=== PATIENT | female | born 2000 | race Caucasian/White ===

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

== ENCOUNTER 2019-01-24 23:14 | Emergency (ER) | payer OTHER ==
[2019-01-24 23:22] VITALS: BP 115/75; PULSE 62; RESP 16; TEMP 97.8
--- NOTE | 2019-01-25 00:29 | XR ---
EXAM: XR Left Knee, 3 views CLINICAL HISTORY: Pain TECHNIQUE: Three views of the left knee. COMPARISON: No relevant prior studies available. FINDINGS: Bones/joints: Unremarkable. No acute fracture. No dislocation. Soft tissues: Unremarkable. IMPRESSION: Normal left knee x-rays.
--- NOTE | 2019-01-25 00:55 | ED ---
Fall HPI - General Chief Complaint: Fall Stated Complaint: Knee Injury, [facility] Time Seen by Provider: 01/25/19 00:21 Source: patient, RN notes reviewed, old records reviewed Mode of arrival: wheelchair - History of Present Illness Initial Comments: Patient is a 18-year-old female presents today with left knee pain after trip and fall over a broom. She reports that her weight landed on her left knee. He reports pain with flexion. Most of her pain is on her knee. Patient denies any peripheral paresthesias. Patient denies any recent fever, chills, shortness of breath, chest pain, back pain, abdominal pain, nausea vomiting, numbness or tingling, dysuria or hematuria, constipation or diarrhea, headaches or visual changes, or any other current symptoms - Related Data Home Medications Medication Instructions Recorded Confirmed [place] Control 1 tab PO HS 07/19/18 07/19/18 Previous Rx's Medication Instructions Recorded Ibuprofen 600 mg PO TID #30 tablet 07/19/18 Fluticasone Propionate [Flonase 1 spray EA NOSTRIL DAILY #1 bottle 09/24/18 Allergy Relief] methylPREDNISolone Dose Pack 4 mg PO DIRECTED #21 package 09/24/18 [Medrol Dose Pack] Ibuprofen 600 mg PO TID #20 tablet 01/25/19 Allergies Allergy/AdvReac Type Severity Reaction Status Date / Time No Known Allergies Allergy Verified 01/24/19 23:22 Review of Systems ROS Statement: Those systems with pertinent positive or pertinent negative responses have been documented in the HPI. ROS Other: All systems not noted in ROS Statement are negative. Past Medical History Past Medical History: No Reported History History of Any Multi-Drug Resistant Organisms: None Reported Past Surgical History: No Surgical Hx Reported Additional Past Surgical History / Comment(s): ear tubes Past Psychological History: Anxiety Smoking Status: Never smoker Past Alcohol Use History: None Reported Past Drug Use History: None Reported General Exam - General Exam Comments Initial Comments: 18-year-old female. Alert and oriented 3. Patient appears in no significant distress. Limitations: no limitations General appearance: alert, in no apparent distress Head exam: Present: atraumatic, normocephalic, normal inspection Eye exam: Present: normal appearance, PERRL, EOMI. Absent: scleral icterus, conjunctival injection, periorbital swelling ENT exam: Present: normal exam, mucous membranes moist Neck exam: Present: normal inspection. Absent: tenderness, meningismus, lymphadenopathy Respiratory exam: Present: normal lung sounds bilaterally. Absent: respiratory distress, wheezes, rales, rhonchi, stridor Cardiovascular Exam: Present: regular rate, normal rhythm, normal heart sounds. Absent: systolic murmur, diastolic murmur, rubs, gallop, clicks GI/Abdominal exam: Present: soft, normal bowel sounds. Absent: distended, tenderness, guarding, rebound, rigid Extremities exam: Present: normal inspection, full ROM, normal capillary refill. Absent: tenderness, pedal edema, joint swelling, calf tenderness Left Knee exam: Present: normal inspection, tenderness (Tenderness over the kneecap.), ecchymosis (Echinosis of knee cap). Absent: full ROM (Chest pain with flexion.) Lower Leg exam: Present: normal inspection, full ROM Ankle exam: Present: normal inspection, full ROM Foot/Toe exam: Present: normal inspection, full ROM Neurovascular tendon exam: Present: no vascular compromise Gait: observed and normal Back exam: Present: normal inspection Neurological exam: Present: alert, oriented X3, CN II-XII intact Psychiatric exam: Present: normal affect, normal mood Course Vital Signs 01/24/19 23:19 Temperature 97.8 F Pulse Rate 62 Respiratory 16 Rate Blood Pressure 115/75 O2 Sat by Pulse 97 Oximetry Medical Decision Making - Medical Decision Making 18-year-old female presents to return today with left knee pain after she tripped and fell. Patient reports that her pain is left kneecap. Pain with flexion. At this time Patient does have some swelling over the knee. X-rays reviewed and negative for fracture. At this time Patient is given Nolan wrap and advised to scratches that she hard he has at home and anti-inflammatory medicine for pain. Discussion follow-up with orthopedic. All questions were answered. - Radiology Data Radiology results: report reviewed Normal left knee exam Disposition Clinical Impression: Contusion of left knee Disposition: HOME SELF-CARE Condition: Good Instructions (If sedation given, give patient instructions): Knee Sprain (ED) Additional Instructions: Patient has a take Motrin for pain. Wear the Nolan wrap and use ice to the knee to help with inflammation. Follow-up with orthopedic if symptoms continue to persist. Prescriptions: Ibuprofen 600 mg PO TID #20 tablet Is patient prescribed a controlled substance at d/c from ED?: No Referrals: Hi Chavez MD [Primary Care Provider] - 1-2 days Roger Wilson MD [Medical Doctor] - 1-2 days Time of Disposition: 00:56
== END 2019-01-25 01:48 | disposition home or self-care (01) ==
LOC: EC 23:14
DX: S80.02XA Contusion of left knee, initial encounter (principal); Z79.3 Long term (current) use of hormonal contraceptives; W01.0XXA Fall on same level from slipping, tripping and stumbling without subsequent striking against object, initial encounter; Y92.69 Other specified industrial and construction area as the place of occurrence of the external cause; Y99.0 Civilian activity done for income or pay
CPT/HCPCS: 99284

== ENCOUNTER 2019-03-14 12:47 | Emergency (ER) | payer OTHER ==
[2019-03-14] MEDS ORDERED: IBUPROFEN 600 MG TAB PO STA (13:49)
[2019-03-14] MEDS ORDERED: ACETAMINOPHEN TAB 325 MG TAB PO STA (13:49)
--- NOTE | 2019-03-14 13:49 | ED ---
Abdominal Pain HPI - General Chief Complaint: Abdominal Pain Stated Complaint: ovarian cysts Time Seen by Provider: 03/14/19 13:11 Source: patient Mode of arrival: ambulatory Limitations: no limitations - History of Present Illness Initial Comments: Patient is a 18-year-old female presenting to the emergency Department with complaints of bilateral lower abdominal pain that has been increasing over the past 3-4 days. Patient states she has a history of ovarian cysts and this pain feels similar in nature. Patient states however she is not usually have it on both sides at the same time. Patient states she just had a period last month and normally has them every 3 months. Patient states she is also having a small amount of bloody vaginal discharge. Patient denies any vaginal pain, other discharge, itching. Patient states she was recently tested for STDs which were all negative. Patient also uses protection with her one partner. Patient has no concerns for STDs at this time. Admits to mild nausea intermittently. She took Motrin yesterday without significant improvement in her pain. Patient states she called her DIRECTOR OF ANALYTICAL DEVELOPMENT who were not able to get her in today so suggested she come to the ER. Denies fever, chills, vomiting, diarrhea. Patient denies abdominal surgeries. Patient has no other complaints at this time. Upon arrival to ER, vital signs are stable. - Related Data Home Medications Medication Instructions Recorded Confirmed [place] Control 1 tab PO HS 07/19/18 03/14/19 FLUoxetine HCL [PROzac] 20 mg PO DAILY 03/14/19 03/14/19 Previous Rx's Medication Instructions Recorded Ibuprofen 600 mg PO TID #30 tablet 07/19/18 Allergies Allergy/AdvReac Type Severity Reaction Status Date / Time Milk Containing Products AdvReac Nausea Verified 03/14/19 13:41 [Dairy] Review of Systems ROS Statement: Those systems with pertinent positive or pertinent negative responses have been documented in the HPI. ROS Other: All systems not noted in ROS Statement are negative. Past Medical History Past Medical History: No Reported History History of Any Multi-Drug Resistant Organisms: None Reported Past Surgical History: No Surgical Hx Reported Additional Past Surgical History / Comment(s): ear tubes Past Psychological History: Anxiety Smoking Status: Never smoker Past Alcohol Use History: None Reported Past Drug Use History: None Reported General Exam - General Exam Comments Initial Comments: GENERAL: Well-appearing, well-nourished and in no acute distress. HEAD: Atraumatic, normocephalic. EYES: Pupils equal round and reactive to light, extraocular movements intact, sclera anicteric, conjunctiva are normal. ENT: Nares patent, oropharynx clear without exudates. Moist mucous membranes. NECK: Normal range of motion, supple without lymphadenopathy or JVD. LUNGS: Breath sounds clear to auscultation bilaterally and equal. No wheezes rales or rhonchi. HEART: Regular rate and rhythm without murmurs, rubs or gallops. ABDOMEN: Mild bilateral lower quadrant tenderness. Soft, normoactive bowel sounds. No guarding, no rebound. No masses appreciated. : Deferred, declined EXTREMITIES: Normal range of motion, no pitting or edema. No clubbing or cyanosis. NEUROLOGICAL: Cranial nerves II through XII grossly intact. Normal speech, normal gait. PSYCH: Normal mood, normal affect. SKIN: Warm, Dry, normal turgor, no rashes or lesions noted. Limitations: no limitations Course Vital Signs 03/14/19 13:00 Temperature 98.7 F Pulse Rate 74 Respiratory 18 Rate Blood Pressure 116/73 O2 Sat by Pulse 97 Oximetry Medical Decision Making - Medical Decision Making Patient is a 18-year-old female presenting with mild, bilateral lower abdominal tenderness x 3 days. Patient has history of ovarian cysts and this pain feels similar. Patient admits to mild intermittent nausea. Ultrasound slightly limited due to body habitus. No visualization of the left ovary. Right ovary is within normal limits, no evidence of torsion. Majority of patient's pain is on the right side. UA is normal muscle infection. Patient was offered vaginal exam however patient declined this time. She is comfortable being discharged home and following up with her [employer]ACHINE [employer]. Patient was given Tylenol and Motrin for pain relief which did help her symptoms. Return parameters were discussed with the patient she verbalized understanding. - Lab Data Lab Results 03/14/19 Range/Units 13:45 Urine Color Yellow Urine Appearance Clear (Clear) Urine pH 7.5 (5.0-8.0) Ur Specific [place] 1.015 (1.001-1.035) Urine Protein Negative (Negative) Urine Glucose (UA) Negative (Negative) Urine Ketones Negative (Negative) Urine Blood Negative (Negative) Urine Nitrite Negative (Negative) Urine Bilirubin Negative (Negative) Urine Urobilinogen <2.0 (<2.0) mg/dL Ur Leukocyte Esterase Trace H (Negative) Urine RBC 1 (0-5) /hpf Urine WBC 1 (0-5) /hpf Ur Squamous Epith Cells 3 (0-4) /hpf Urine Bacteria Rare H (None) /hpf Disposition Clinical Impression: Abdominal pain Disposition: HOME SELF-CARE Condition: Stable Instructions (If sedation given, give patient instructions): Abdominal Pain (ED) Additional Instructions: Please return to the Emergency Department if symptoms worsen or any other concerns. Follow-up with DIRECTOR OF ANALYTICAL DEVELOPMENT as discussed. Is patient prescribed a controlled substance at d/c from ED?: No Referrals: Hi Chavez MD [Primary Care Provider] - 1-2 days
[2019-03-14 14:10] LABS: Appearance,Urine Clear (Clear); Bacteria,Urine Rare /hpf; Bilirubin,Urine Negative (Negative); Blood,Urine Negative (Negative); Color,Urine Yellow; Glucose,Urine (UA) Negative (Negative); Ketones,Urine Negative (Negative); Leukocyte Esterase,Urine Trace (Negative); Nitrite,Urine Negative (Negative); PH, Urine 7.5 (5.0-8.0); Protein,Urine Negative (Negative); RBC,Urine 1 /hpf (0-5); Specific Gravity,Urine 1.015 (1.001-1.035); Squamous Epithelial Cell,Urine 3 /hpf (0-4); Urobilinogen,Urine <2.0 mg/dL (<2.0)
--- NOTE | 2019-03-14 15:18 | US ---
EXAMINATION TYPE: US transvaginal DATE OF EXAM: 03/14/2019 COMPARISON: NONE CLINICAL HISTORY: bilateral lower abdomen pain, hx of ovarian cysts. TECHNIQUE: Transvaginal (TV). Date of LMP: 02/09/19 Patient on control and states she only has a period once every 3 months. EXAM MEASUREMENTS: Uterus: 6.4 x 2.4 x 3.1 cm Endometrial Stripe: 0.2 cm Right Ovary: 2.1 x 1.4 x 1.3 cm Left Ovary: Not visualized due to overlying bowel gas Patient of large body habitus. Technically difficult study. 1. Uterus: Anteverted wnl 2. Endometrium: wnl 3. Right Ovary: wnl 4. Left Ovary: Not visualized due to overlying bowel gas Spectral, color and waveform doppler imaging shows good arterial and venous flow within the right o vary; there is no evidence for ovarian torsion on right. 5. Bilateral Adnexa: wnl 6. Posterior cul-de-sac: wnl IMPRESSION: Slightly limited exam due to patient body habitus with nonvisualization of the left ovary obscured by bowel gas. Otherwise unremarkable pelvic ultrasound.
[2019-03-14 16:18] VITALS: BP 123/88; PULSE 85; RESP 16; TEMP 98.5
== END 2019-03-14 16:00 | disposition home or self-care (01) ==
LOC: EC 12:47
DX: R10.32 Left lower quadrant pain (principal); R10.31 Right lower quadrant pain; R11.0 Nausea; N89.8 Other specified noninflammatory disorders of vagina; F41.9 Anxiety disorder, unspecified; Z91.011 Allergy to milk products; Z79.3 Long term (current) use of hormonal contraceptives; Z79.899 Other long term (current) drug therapy; Z87.42 Personal history of other diseases of the female genital tract; Z53.20 Procedure and treatment not carried out because of patient's decision for unspecified reasons
CPT/HCPCS: 76830; 81001; 93976; 99284

== ENCOUNTER → 2019-12-20 | Outpatient (CLI) | payer OTHER ==
--- NOTE | 2019-12-20 12:22 | CT ---
EXAMINATION TYPE: CT angio chest DATE OF EXAM: 12/20/2019 12:11 PM COMPARISON: None HISTORY: SOB, CHEST PAIN X1 DAY CT DLP: 644 mGycm Automated exposure control for dose reduction was used. CONTRAST: CTA scan of the thorax is performed with IV Contrast, patient injected with 60 mL of Isovue 370, pulm onary embolism protocol. . FINDINGS: LUNGS: The lungs are grossly clear, there is no concerning parenchymal mass or nodule identified. T here is no pleural effusion or pneumothorax seen. The tracheobronchial tree is patent. MEDIASTINUM: There is suboccipital enhancement of the pulmonary artery and its branches. There are n o greater than 1 cm hilar or mediastinal lymph nodes. Soft tissue attenuation in the anterior mediast inum likely represents residual thymic tissue and measures 10 Hounsfield units. Trace of pericardial fluid not excluded. Artifact limits assessment of the aortic arch. Grossly there is no evidence of an eurysm. OTHER: Curvature of the spine noted. IMPRESSION: SUBOPTIMAL ENHANCEMENT OF THE MAIN PULMONARY AND PROXIMAL PULMONARY ARTERIES BILATERALLY RESULTING IN A LIMITED STUDY. DISTAL BRANCHES DEMONSTRATE NORMAL ENHANCEMENT. CORRELATE WITH VQ SCAN GIVEN THE LI MITATION OF THE EXAM CLINICALLY WARRANTED.
--- NOTE | 2019-12-20 13:35 | XR ---
EXAMINATION TYPE: XR chest 2V DATE OF EXAM: 12/20/2019 COMPARISON: NONE TECHNIQUE: PA and lateral views submitted. HISTORY: Shortness of breath FINDINGS: The lungs are clear and there is no pneumothorax, pleural effusion, or focal pneumonia. Shortness o f breath no overt failure. Heart size normal. IMPRESSION: 1. No acute process.
--- NOTE | 2019-12-20 16:02 | NM ---
EXAMINATION TYPE: NM pul vent and perfuse DATE OF EXAM: 12/20/2019 COMPARISON: CTA chest earlier today. HISTORY: Shortness of breath rule out pulmonary embolism TECHNIQUE: Utilizing inhalation of 42 mCi Tc 99m DTPA aerosol and intravenous injection of 4.95 mCi of Tc 99m MAA, ventilation and perfusion images are acquired post injection in multiple projections. FINDINGS: Normal radiotracer distribution is noted in the lungs. There is no evidence of mismatched defects. IMPRESSION: Low probability for acute pulmonary embolism.
== END | disposition home or self-care (01) ==
LOC: RADCTMAIN 11:36
PROVIDERS: ATTEND Physician Assistant
DX: R06.00 Dyspnea, unspecified (principal)
CPT/HCPCS: 85379; 71046; 71275; 78582; A9540; A9567; Q9967

== ENCOUNTER 2020-12-03 14:40 | Emergency (ER) | payer OTHER ==
[2020-12-03 14:51] VITALS: TEMP 98.1
[2020-12-03] MEDS ORDERED: ONDANSETRON 4 MG/2 ML VIAL IVP STA (15:09)
[2020-12-03] MEDS ORDERED: ACETAMINOPHEN TAB 500 MG TAB PO STA (15:09)
[2020-12-03] MEDS ORDERED: SODIUM CHLORIDE 0.9% 1,000 ML IV STA (15:09)
[2020-12-03] MEDS ORDERED: PANTOPRAZOLE 40 MG/10 ML VIAL IVP STA (15:09)
--- NOTE | 2020-12-03 15:11 | ED ---
Female Urogenital HPI - General Chief complaint: Urogenital Stated complaint: R side Pain Time Seen by Provider: 12/03/20 14:51 Source: patient Mode of arrival: ambulatory Limitations: no limitations - History of Present Illness Initial comments: 20-year-old male presents to the emergency Department with a chief complaint of abdominal pain over the last 24 hours. Patient reports the pain was somewhat of a sudden onset is mostly located in the right flank and right upper quadrant region without any radiation. Patient reports that pain feels dull and states it is exacerbated with movement and does not appear to the postprandial period ports pain is alleviated at rest. She does report some nausea and vomiting earlier today, only 1 episode. Denies any diarrhea or constipation. Denies any urinary or vaginal symptoms. States there is a possibility for , however she uses protection and is on oral contraceptives. Denies any fevers or chills. Denies other abdominal surgeries. - Related Data Home Medications Medication Instructions Recorded Confirmed Setlakin Control 1 tab PO HS 07/19/18 03/14/19 FLUoxetine HCL [PROzac] 20 mg PO DAILY 03/14/19 03/14/19 Previous Rx's Medication Instructions Recorded Ibuprofen 600 mg PO TID #30 tablet 07/19/18 Sulfamethox-Tmp 800-160Mg [Bactrim 1 each PO Q12HR #20 tab 12/03/20 Ds] Allergies Allergy/AdvReac Type Severity Reaction Status Date / Time bupropion [From Wellbutrin] Allergy Unknown Verified 12/03/20 14:51 Milk Containing Products AdvReac Nausea Verified 03/14/19 13:41 [Dairy] Review of Systems ROS Statement: Those systems with pertinent positive or pertinent negative responses have been documented in the HPI. ROS Other: All systems not noted in ROS Statement are negative. Past Medical History Past Medical History: No Reported History History of Any Multi-Drug Resistant Organisms: None Reported Past Surgical History: No Surgical Hx Reported Additional Past Surgical History / Comment(s): ear tubes. wisdom Past Psychological History: Anxiety Past Alcohol Use History: Occasional Past Drug Use History: Marijuana General Exam Limitations: no limitations General appearance: alert, in no apparent distress, obese Head exam: Present: atraumatic, normocephalic, normal inspection Eye exam: Present: normal appearance, PERRL, EOMI Pupils: Present: normal accommodation ENT exam: Present: normal exam, normal oropharynx, mucous membranes moist Neck exam: Present: normal inspection, full ROM. Absent: tenderness, lymphadenopathy Respiratory exam: Present: normal lung sounds bilaterally. Absent: respiratory distress Cardiovascular Exam: Present: regular rate, normal rhythm, normal heart sounds GI/Abdominal exam: Present: soft, tenderness (Positive Leon sign). Absent: distended, guarding, rebound, rigid Extremities exam: Present: normal inspection, full ROM, normal capillary refill. Absent: tenderness, pedal edema, joint swelling Back exam: Present: normal inspection, full ROM, tenderness, CVA tenderness (R). Absent: CVA tenderness (L) Neurological exam: Present: alert, oriented X3 Psychiatric exam: Present: normal affect, normal mood Skin exam: Present: warm, dry, intact, normal color Course Vital Signs 12/03/20 14:47 Temperature 98.1 F Pulse Rate 90 Respiratory 20 Rate Blood Pressure 124/82 O2 Sat by Pulse 98 Oximetry Medical Decision Making - Medical Decision Making 20-year-old male presents to the emergency Department with a chief complaint of abdominal pain over the last 24 hours. On physical examination, right upper quadrant tenderness with positive Leon sign. Patient also has right CVA tenderness. Vital signs are within normal limits. She did have some vomiting today as well. Leukocyte esterase and elevated white blood cells positive in t he urine. Urine culture is pending. Not . Patient will be started on 1 g Rocephin and 10 days of Bactrim. Patient likely has nephritis. Strict return parameters were thoroughly discussed patient with worsening trouble. Ultrasound right upper quadrant reveals no acute findings. Case discussed with Dr. Sneed. - Lab Data Result diagrams: 12/03/20 15:30 12/03/20 15:30 Lab Results 12/03/20 12/03/20 12/03/20 Range/Units 15:30 15:30 15:30 WBC 7.3 (3.8-10.6) k/uL RBC 4.43 (3.80-5.40) m/uL Hgb 13.5 (11.4-16.0) gm/dL Hct 38.8 (34.0-46.0) % MCV 87.6 (80.0-100.0) fL MCH 30.5 (25.0-35.0) pg MCHC 34.9 (31.0-37.0) g/dL RDW 13.0 (11.5-15.5) % Plt Count 296 (150-450) k/uL MPV 8.0 Neutrophils % 67 % Lymphocytes % 23 % Monocytes % 5 % Eosinophils % 3 % Basophils % 1 % Neutrophils # 4.8 (1.3-7.7) k/uL Lymphocytes # 1.7 (1.0-4.8) k/uL Monocytes # 0.4 (0-1.0) k/uL Eosinophils # 0.2 (0-0.7) k/uL Basophils # 0.0 (0-0.2) k/uL Sodium (137-145) mmol/L Potassium (3.5-5.1) mmol/L Chloride (98-107) mmol/L Carbon Dioxide (22-30) mmol/L Anion Gap mmol/L BUN (7-17) mg/dL Creatinine (0.52-1.04) mg/dL Est GFR (CKD-EPI)AfAm (>60 ml/min/1.73 sqM) Est GFR (CKD-EPI)NonAf (>60 ml/min/1.73 sqM) Glucose (74-99) mg/dL Calcium (8.4-10.2) mg/dL Total Bilirubin (0.2-1.3) mg/dL AST (14-36) U/L ALT (4-34) U/L Alkaline Phosphatase (38-126) U/L Total Protein (6.3-8.2) g/dL Albumin (3.5-5.0) g/dL Amylase (30-110) U/L Lipase (23-300) U/L Urine Color Yellow Urine Appearance Cloudy H (Clear) Urine pH 5.5 (5.0-8.0) Ur Specific [place] 1.028 (1.001-1.035) Urine Protein Trace H (Negative) Urine Glucose (UA) Negative (Negative) Urine Ketones Negative (Negative) Urine Blood Trace H (Negative) Urine Nitrite Negative (Negative) Urine Bilirubin Negative (Negative) Urine Urobilinogen <2.0 (<2.0) mg/dL Ur Leukocyte Esterase Large H (Negative) Urine RBC 8 H (0-5) /hpf Urine WBC >182 H (0-5) /hpf Ur Squamous Epith Cells 5 H (0-4) /hpf Urine Bacteria Rare H (None) /hpf Urine Mucus Rare H (None) /hpf Urine HCG, Qual Not Detected (Not Detectd) 12/03/20 Range/Units 15:30 WBC (3.8-10.6) k/uL RBC (3.80-5.40) m/uL Hgb (11.4-16.0) gm/dL Hct (34.0-46.0) % MCV (80.0-100.0) fL MCH (25.0-35.0) pg MCHC (31.0-37.0) g/dL RDW (11.5-15.5) % Plt Count (150-450) k/uL MPV Neutrophils % % Lymphocytes % % Monocytes % % Eosinophils % % Basophils % % Neutrophils # (1.3-7.7) k/uL Lymphocytes # (1.0-4.8) k/uL Monocytes # (0-1.0) k/uL Eosinophils # (0-0.7) k/uL Basophils # (0-0.2) k/uL Sodium 139 (137-145) mmol/L Potassium 4.2 (3.5-5.1) mmol/L Chloride 110 H (98-107) mmol/L Carbon Dioxide 21 L (22-30) mmol/L Anion Gap 8 mmol/L BUN 9 (7-17) mg/dL Creatinine 0.67 (0.52-1.04) mg/dL Est GFR (CKD-EPI)AfAm >90 (>60 ml/min/1.73 sqM) Est GFR (CKD-EPI)NonAf >90 (>60 ml/min/1.73 sqM) Glucose 85 (74-99) mg/dL Calcium 8.8 (8.4-10.2) mg/dL Total Bilirubin <0.1 L (0.2-1.3) mg/dL AST 18 (14-36) U/L ALT 10 (4-34) U/L Alkaline Phosphatase 125 (38-126) U/L Total Protein 6.3 (6.3-8.2) g/dL Albumin 3.6 (3.5-5.0) g/dL Amylase 46 (30-110) U/L Lipase 43 (23-300) U/L Urine Color Urine Appearance (Clear) Urine pH (5.0-8.0) Ur Specific [place] (1.001-1.035) Urine Protein (Negative) Urine Glucose (UA) (Negative) Urine Ketones (Negative) Urine Blood (Negative) Urine Nitrite (Negative) Urine Bilirubin (Negative) Urine Urobilinogen (<2.0) mg/dL Ur Leukocyte Esterase (Negative) Urine RBC (0-5) /hpf Urine WBC (0-5) /hpf Ur Squamous Epith Cells (0-4) /hpf Urine Bacteria (None) /hpf Urine Mucus (None) /hpf Urine HCG, Qual (Not Detectd) Disposition Clinical Impression: Pyelonephritis, Nausea & vomiting Disposition: HOME SELF-CARE Condition: Stable Instructions (If sedation given, give patient instructions): Kidney Infection (ED) Additional Instructions: Please return to the Emergency Department if symptoms worsen or any other concerns. Prescriptions: Sulfamethox-Tmp 800-160Mg [Bactrim Ds] 1 each PO Q12HR #20 tab Is patient prescribed a controlled substance at d/c from ED?: No Referrals: Hi Chavez MD [Primary Care Provider] - 1-2 days Time of Disposition: 16:27
[2020-12-03 15:38] LABS: Basophils % (A) 1 %; Eosinophils # (A) 0.2 k/uL (0-0.7); Eosinophils % (A) 3 %; HCT 38.8 % (34.0-46.0); HGB 13.5 gm/dL (11.4-16.0); Lymphocytes # (A) 1.7 k/uL (1.0-4.8); Lymphocytes % (A) 23 %; MCH 30.5 pg (25.0-35.0); MCHC 34.9 g/dL (31.0-37.0); MCV 87.6 fL (80.0-100.0); Monocytes # (A) 0.4 k/uL (0-1.0); Monocytes % (A) 5 %; Neutrophils # (A) 4.8 k/uL (1.3-7.7); Neutrophils % (A) 67 %; Platelet Count 296 k/uL (150-450); RBC 4.43 m/uL (3.80-5.40); WBC 7.3 k/uL (3.8-10.6)
[2020-12-03 15:51] LABS: ALT 10 U/L (4-34); AST 18 U/L (14-36); African American GFR (CKD) >90 (>60 ml/min/1.73 sqM); Albumin 3.6 g/dL (3.5-5.0); Alkaline Phosphatase 125 U/L (38-126); Amylase 46 U/L (30-110); Anion Gap 8 mmol/L; Blood Urea Nitrogen 9 mg/dL (7-17); Calcium 8.8 mg/dL (8.4-10.2); Carbon Dioxide 21 mmol/L (22-30); Chloride 110 mmol/L (98-107); Glucose 85 mg/dL (74-99); Lipase 43 U/L (23-300); Non-African American GFR(CKD) >90 (>60 ml/min/1.73 sqM); Potassium 4.2 mmol/L (3.5-5.1); Sodium 139 mmol/L (137-145); Total Bilirubin <0.1 mg/dL (0.2-1.3); Total Protein 6.3 g/dL (6.3-8.2)
[2020-12-03] MEDS ORDERED: KETOROLAC 15 MG/ML 1 ML VIAL IVP STA (15:53)
[2020-12-03 16:15] LABS: Appearance,Urine Cloudy (Clear); Bacteria,Urine Rare /hpf; Bilirubin,Urine Negative (Negative); Blood,Urine Trace (Negative); Color,Urine Yellow; Glucose,Urine (UA) Negative (Negative); Ketones,Urine Negative (Negative); Leukocyte Esterase,Urine Large (Negative); Mucus,Urine Rare /hpf; Nitrite,Urine Negative (Negative); PH, Urine 5.5 (5.0-8.0); Protein,Urine Trace (Negative); RBC,Urine 8 /hpf (0-5); Specific Gravity,Urine 1.028 (1.001-1.035); Squamous Epithelial Cell,Urine 5 /hpf (0-4); Urobilinogen,Urine <2.0 mg/dL (<2.0); WBC,Urine >182 /hpf (0-5)
--- NOTE | 2020-12-03 16:23 | US ---
EXAMINATION TYPE: US gallbladder DATE OF EXAM: 12/03/2020 COMPARISON: CT Chest CLINICAL HISTORY: Leon sign. RUQ pain EXAM MEASUREMENTS: Liver Length: 15.1 cm Gallbladder Wall: 0.2 cm CBD: 0.4 cm Right Kidney: 9.3 x 4.2 x 5.8 cm Pancreas: Body wnl, head and tail obscured by overlying bowel gas Liver: Heterogeneous, difficult to penetrate probable mild fatty infiltration. Gallbladder: wnl Evidence for sonographic Leon's sign: No CBD: wnl Right Kidney: wnl, lower pole gassed out IMPRESSION: 1. The lower pole of the right kidney is not well visualized. No visualized renal calculi or hydronep hrosis. 2. The common duct was within normal limits. Gallbladder wall is within normal limits. No gallstones, sludge, or pericholecystic fluid. 3. The head and tail of the pancreas are obscured due to overlying bowel gas. 4. Probable mild fatty infiltration of the liver. 5. Leon's sign is negative per biomedical engineering technologist on today's study.
[2020-12-03] MEDS ORDERED: cefTRIAXone IN SWFI 1,000 MG/10 ML SYRINGE IVP STA (16:25)
[2020-12-03 16:47] VITALS: BP 109/73; PULSE 75; RESP 18
== END 2020-12-03 17:03 | disposition home or self-care (01) ==
LOC: EC 14:40
DX: N12 Tubulo-interstitial nephritis, not specified as acute or chronic (principal); R11.2 Nausea with vomiting, unspecified; F12.90 Cannabis use, unspecified, uncomplicated
CPT/HCPCS: 36415; 80053; 82150; 83690; 85025; 81001; 81025; 87086; 76705; 99284; 96374; 96375 ×2; 96361 ×2; J2405; J0696; C9113

== ENCOUNTER 2021-01-03 06:21 | Emergency (ER) | payer OTHER ==
[2021-01-03 06:33] VITALS: TEMP 97.3
--- NOTE | 2021-01-03 07:23 | XR ---
EXAMINATION TYPE: XR knee 4V LT DATE OF EXAM: 01/03/2021 COMPARISON: 01/26/2020 HISTORY: Relocated patella TECHNIQUE: 4V left knee FINDINGS: Joint spaces are preserved. No joint effusion is evident. No acute fracture or dislocation is radiographically evident. Patella mickey may be present, stable from comparison. The patella otherwi se aligns normally. Follow up exams can be performed 7-10 days from acute trauma for continued pain. IMPRESSION: 1. No acute fracture.
--- NOTE | 2021-01-03 07:29 | ED ---
Fall HPI - General Chief Complaint: Fall Stated Complaint: Fall, knee injury Time Seen by Provider: 01/03/21 06:31 Source: patient, EMS, RN notes reviewed, old records reviewed Mode of arrival: EMS - History of Present Illness Initial Comments: Patient is a 20-year-old female that presents to emergency room complaining of left patella dislocation while at work. She notes that she was standing at [employer] in the drive-through window working when she twisted and noted her patella dislocated laterally. EMS reported that on the way over after splinting any the patella relocated naturally on its own. Patient was given pain medications on the right over. She notes that she was in no acute pain while sitting up in bed during the exam interview. She notes that she does have a history of chronic knee issues that she does physical therapy for. She denied any other issues or complaints at this time. She denied any chest pain shortness of breath headache nausea vomiting diarrhea constipation fever fatigue chills decreased sensation in her left lower extremity. - Related Data Home Medications Medication Instructions Recorded Confirmed Setlakin Control 1 tab PO HS 07/19/18 03/14/19 FLUoxetine HCL [PROzac] 20 mg PO DAILY 03/14/19 03/14/19 Previous Rx's Medication Instructions Recorded Ibuprofen 600 mg PO TID #30 tablet 07/19/18 Ondansetron Odt [Zofran Odt] 4 mg PO Q8HR PRN #10 tab 12/03/20 Sulfamethox-Tmp 800-160Mg [Bactrim 1 each PO Q12HR #20 tab 12/03/20 Ds] Ibuprofen [Motrin] 800 mg PO Q6HR #30 tab 01/03/21 Allergies Allergy/AdvReac Type Severity Reaction Status Date / Time bupropion [From Wellbutrin] Allergy Unknown Verified 12/03/20 14:51 Milk Containing Products AdvReac Nausea Verified 03/14/19 13:41 [Dairy] Review of Systems ROS Statement: Those systems with pertinent positive or pertinent negative responses have been documented in the HPI. ROS Other: All systems not noted in ROS Statement are negative. Past Medical History Past Medical History: No Reported History History of Any Multi-Drug Resistant Organisms: None Reported Past Surgical History: No Surgical Hx Reported Additional Past Surgical History / Comment(s): ear tubes. wisdom Past Psychological History: Anxiety, Depression Smoking Status: Never smoker Past Alcohol Use History: Occasional Past Drug Use History: Marijuana General Exam Limitations: physical limitation General appearance: alert, in no apparent distress Head exam: Present: atraumatic, normocephalic, normal inspection Eye exam: Present: normal appearance, PERRL, EOMI. Absent: scleral icterus, conjunctival injection, periorbital swelling Neck exam: Present: normal inspection Respiratory exam: Present: normal lung sounds bilaterally. Absent: respiratory distress, wheezes, rales, rhonchi, stridor Cardiovascular Exam: Present: regular rate, normal rhythm, normal heart sounds. Absent: systolic murmur, diastolic murmur, rubs, gallop, clicks GI/Abdominal exam: Present: soft, normal bowel sounds. Absent: distended, tenderness, guarding, rebound, rigid Extremities exam: Present: normal inspection, full ROM, normal capillary refill, other (Left knee patella relocated, no tenderness, no obvious instability or deformity.). Absent: tenderness, pedal edema, joint swelling, calf tenderness Neurological exam: Present: alert, oriented X3 Psychiatric exam: Present: normal affect, normal mood Skin exam: Present: warm, dry, intact, normal color. Absent: rash Course Vital Signs 01/03/21 06:22 Temperature 97.3 F L Pulse Rate 74 Respiratory 15 Rate Blood Pressure 133/82 O2 Sat by Pulse 100 Oximetry Medical Decision Making - Medical Decision Making 20-year-old female complaining of left patella dislocation was relocated on the ambulance ride over naturally. X-ray of the left knee ordered. X-ray left knee negative for any acute fracture. Leg splint ordered. Case discussed with Dr. Cortes, patient can discharge home with follow-up to [facility] and orthopedics. - Radiology Data Radiology results: report reviewed, image reviewed Left knee x-ray: No acute fracture. Disposition Clinical Impression: Dislocation of left patella Disposition: HOME SELF-CARE Condition: Stable Instructions (If sedation given, give patient instructions): Fall Prevention (ED) Additional Instructions: Please return to the Emergency Department if symptoms worsen or any other concerns. Follow-up with primary care in next 1-2 days. Follow-up with orthopedics in the next several days. Take at home Tylenol Motrin as needed for pain control. Rest ice compress elevate. Is patient prescribed a controlled substance at d/c from ED?: No Referrals: Hi Chavez MD [Primary Care Provider] - 1-2 days Time of Disposition: 07:28
[2021-01-03 07:54] VITALS: BP 131/87; PULSE 97; RESP 18
== END 2021-01-03 07:53 | disposition home or self-care (01) ==
LOC: EC 06:21
DX: S83.005A Unspecified dislocation of left patella, initial encounter (principal); F32.9 Major depressive disorder, single episode, unspecified; F41.9 Anxiety disorder, unspecified; F12.90 Cannabis use, unspecified, uncomplicated; Z79.1 Long term (current) use of non-steroidal anti-inflammatories (NSAID); Z79.899 Other long term (current) drug therapy; W18.30XA Fall on same level, unspecified, initial encounter; X50.1XXA Overexertion from prolonged static or awkward postures, initial encounter; Y99.0 Civilian activity done for income or pay
CPT/HCPCS: 73564; 99284; L1830

== ENCOUNTER → 2021-09-26 | Outpatient (CLI) | payer OTHER ==
--- NOTE | 2021-09-26 15:21 | NM ---
EXAMINATION TYPE: NM hepatobiliary w EF DATE OF EXAM: 09/26/2021 COMPARISON: Gallbladder ultrasound December 03, 2020 HISTORY: Epigastric pain with diminished appetite TECHNIQUE: After the intravenous administration of 5.2 mCi Tc 99m Mebrofenin hepatobiliary scintigrap hy is performed. Immediate images post injection. FINDINGS: There is satisfactory initial accumulation of tracer by the liver. The gallbladder is visualized wit hin 15 minutes. The small bowel activity is noted within 15 minutes. At one hour 8 ounces of oral e nsure plus is given to mimic CCK and gallbladder ejection fraction is calculated at 90 %, not deviate d from the normal range. Therefore there is no scintigraphic evidence of cystic or common bile duct obstruction to suggest acute cholecystitis or gallbladder hypokinesia. IMPRESSION: As above.
== END | disposition home or self-care (01) ==
LOC: RADNMMAIN 12:37
PROVIDERS: ATTEND Family Medicine
DX: R10.11 Right upper quadrant pain (principal)
CPT/HCPCS: 78226; A9537

== ENCOUNTER 2021-09-27 10:35 | Emergency (ER) | payer OTHER ==
[2021-09-27] MEDS ORDERED: ACETAMINOPHEN TAB 325 MG TAB PO STA (11:31)
[2021-09-27 11:53] LABS: Basophils % (A) 0 %; Eosinophils # (A) 0.1 k/uL (0-0.7); Eosinophils % (A) 1 %; HCT 44.6 % (34.0-46.0); HGB 14.4 gm/dL (11.4-16.0); Lymphocytes # (A) 1.8 k/uL (1.0-4.8); Lymphocytes % (A) 23 %; MCH 28.7 pg (25.0-35.0); MCHC 32.4 g/dL (31.0-37.0); MCV 88.7 fL (80.0-100.0); Mean Platelet Volume 8.3; Monocytes # (A) 0.3 k/uL (0-1.0); Monocytes % (A) 4 %; Neutrophils # (A) 5.4 k/uL (1.3-7.7); Neutrophils % (A) 70 %; Platelet Count 293 k/uL (150-450); RBC 5.03 m/uL (3.80-5.40); RDW 13.9 % (11.5-15.5); WBC 7.8 k/uL (3.8-10.6)
[2021-09-27 11:56] LABS: Appearance,Urine Clear (Clear); Bilirubin,Urine Negative (Negative); Blood,Urine Large (Negative); Color,Urine Yellow; Glucose,Urine (UA) Negative (Negative); Ketones,Urine Negative (Negative); Leukocyte Esterase,Urine Trace (Negative); Mucus,Urine Rare /hpf; Nitrite,Urine Negative (Negative); Protein,Urine Negative (Negative); RBC,Urine >182 /hpf (0-5); Specific Gravity,Urine 1.019 (1.001-1.035); Squamous Epithelial Cell,Urine 2 /hpf (0-4); Urobilinogen,Urine <2.0 mg/dL (<2.0); WBC,Urine 2 /hpf (0-5)
[2021-09-27 12:01] LABS: INR 0.9 (<1.2); Partial Thromboplastin Time 26.4 sec (22.0-30.0); Prothrombin Time 10.3 sec (9.0-12.0)
[2021-09-27 12:15] LABS: ALT 16 U/L (4-34); African American GFR (CKD) >90 (>60 ml/min/1.73 sqM); Albumin 3.8 g/dL (3.5-5.0); Anion Gap 8 mmol/L; Blood Urea Nitrogen 12 mg/dL (7-17); Carbon Dioxide 23 mmol/L (22-30); Chloride 107 mmol/L (98-107); Glucose 89 mg/dL (74-99); Non-African American GFR(CKD) >90 (>60 ml/min/1.73 sqM); Sodium 138 mmol/L (137-145); Total Bilirubin 0.7 mg/dL (0.2-1.3); Total Protein 7.2 g/dL (6.3-8.2)
[2021-09-27 12:16] LABS: AST 31 U/L (14-36); Alkaline Phosphatase 115 U/L (38-126); Potassium 4.5 mmol/L (3.5-5.1)
--- NOTE | 2021-09-27 13:18 | US ---
EXAMINATION TYPE: US transvaginal DATE OF EXAM: 09/27/2021 COMPARISON: US dated 03/14/2019 CLINICAL HISTORY: vaginal bleeding, denies . TECHNIQUE: Transvaginal (TV). Date of LMP: 08/17/2021 EXAM MEASUREMENTS: Uterus: 5.9 x 2.3 x 3.4 cm Endometrial Stripe: 0.6 cm Right Ovary: 4.1 x 2.5 x 3.1 cm Left Ovary: not seen 1. Uterus: Anteverted wnl 2. Endometrium: measures 0.6 cm, patient states she only has cycles every 3 months. 3. Right Ovary: complex cyst measures 3.0 x 1.9 x 2.5 cm 4. Left Ovary: not identified Spectral, color and waveform doppler imaging shows good arterial and venous flow within the right o vary; there is no evidence for ovarian torsion. 5. Bilateral Adnexa: wnl 6. Posterior cul-de-sac: small amount of free fluid. This could be physiologic. IMPRESSION: 1. Complex cyst right ovary. Follow-up is recommended in 6 weeks.
--- NOTE | 2021-09-27 13:46 | ED ---
Female Urogenital HPI - General Chief complaint: Vaginal Bleeding Stated complaint: femal Time Seen by Provider: 09/27/21 11:02 Source: patient Mode of arrival: ambulatory Limitations: no limitations - History of Present Illness Initial comments: Patient is a 21-year-old female presents to the emergency department with a chief complaint abnormal vaginal bleeding. Patient states the symptoms started 3 AM with associated pelvic cramping. Patient states she has a history of polycystic ovarian syndrome with her menstrual period occurring every 3 months. Patient states her next menstrual period is next month. Patient states she is bleeding more than her typical menstruation, using 5 pads today. Patient reports 5-10 quarter sized blood clots. She states she typically has clots during her menstrual period but they are smaller in size. She states that in the past 1-2 hours the bleeding has subsided. Patient reports mild lightheadedness. She denies fever, chills, nausea, and vomiting. She denies chance of . - Related Data Home Medications Medication Instructions Recorded Confirmed [place] Control 1 tab PO HS 07/19/18 03/14/19 FLUoxetine HCL [PROzac] 20 mg PO DAILY 03/14/19 03/14/19 Previous Rx's Medication Instructions Recorded Ibuprofen 600 mg PO TID #30 tablet 07/19/18 Ondansetron Odt [Zofran Odt] 4 mg PO Q8HR PRN #10 tab 12/03/20 Sulfamethox-Tmp 800-160Mg [Bactrim 1 each PO Q12HR #20 tab 12/03/20 Ds] Ibuprofen [Motrin] 800 mg PO Q6HR #30 tab 01/03/21 Ondansetron Odt [Zofran ODT] 4 mg PO Q8HR PRN #10 tab 07/02/21 Allergies Allergy/AdvReac Type Severity Reaction Status Date / Time bupropion [From Wellbutrin] Allergy Unknown Verified 09/27/21 10:40 Milk Containing Products AdvReac Nausea Verified 09/27/21 10:40 [Dairy] Review of Systems ROS Statement: Those systems with pertinent positive or pertinent negative responses have been documented in the HPI. ROS Other: All systems not noted in ROS Statement are negative. Past Medical History Past Medical History: No Reported History History of Any Multi-Drug Resistant Organisms: None Reported Past Surgical History: Ear Surgery Additional Past Surgical History / Comment(s): ear tubes. wisdom Past Psychological History: Anxiety, Depression Smoking Status: Never smoker Past Alcohol Use History: Occasional Past Drug Use History: None Reported General Exam Limitations: no limitations General appearance: alert, in no apparent distress Head exam: Present: atraumatic, normocephalic, normal inspection Eye exam: Present: normal appearance, PERRL, EOMI. Absent: scleral icterus, conjunctival injection, periorbital swelling Respiratory exam: Present: normal lung sounds bilaterally. Absent: respiratory distress, wheezes, rales, rhonchi, stridor Cardiovascular Exam: Present: regular rate, normal rhythm, normal heart sounds. Absent: systolic murmur, diastolic murmur, rubs, gallop, clicks GI/Abdominal exam: Present: soft, normal bowel sounds. Absent: distended, tenderness, guarding, rebound, rigid Extremities exam: Present: normal capillary refill Neurological exam: Present: alert, oriented X3, CN II-XII intact Psychiatric exam: Present: normal affect, normal mood Skin exam: Present: warm, dry, intact, normal color. Absent: rash Course Vital Signs 09/27/21 09/27/21 10:38 13:53 Temperature 98.1 F 98.6 F Pulse Rate 83 88 Respiratory 16 18 Rate Blood Pressure 117/82 118/68 O2 Sat by Pulse 97 99 Oximetry Medical Decision Making - Medical Decision Making This is a 21-year-old female who presents with vaginal bleeding and pelvic cramping since 3 AM this morning. Thorough history and examination were performed. Patient is afebrile. The abdomen is soft nontender. Laboratory studies were obtained. Hemoglobin is normal at 14.4. is not detected. Uterine fibroids are on the differential. Ultrasound was obtained which shows a normal uterus with a thickened endometrium. A complex cyst was found on the right ovary. Results discussed with patient. It appears that patient is experiencing dysfunctional uterine bleeding of unknown etiology. Patient we discharged with instruction to follow up with her WINDOWS APPLICATION ADMINISTRATOR for further evaluation and management of her symptoms. Return parameters discussed. Patient verbalizes understanding and is agreeable to this plan. Dr. Smart is my attending. - Lab Data Result diagrams: 09/27/21 11:35 09/27/21 11:35 Lab Results 09/27/21 09/27/21 09/27/21 Range/Units 11:35 11:35 11:35 WBC 7.8 (3.8-10.6) k/uL RBC 5.03 (3.80-5.40) m/uL Hgb 14.4 (11.4-16.0) gm/dL Hct 44.6 (34.0-46.0) % MCV 88.7 (80.0-100.0) fL MCH 28.7 (25.0-35.0) pg MCHC 32.4 (31.0-37.0) g/dL RDW 13.9 (11.5-15.5) % Plt Count 293 (150-450) k/uL MPV 8.3 Neutrophils % 70 % Lymphocytes % 23 % Monocytes % 4 % Eosinophils % 1 % Basophils % 0 % Neutrophils # 5.4 (1.3-7.7) k/uL Lymphocytes # 1.8 (1.0-4.8) k/uL Monocytes # 0.3 (0-1.0) k/uL Eosinophils # 0.1 (0-0.7) k/uL Basophils # 0.0 (0-0.2) k/uL PT 10.3 (9.0-12.0) sec INR 0.9 (<1.2) APTT 26.4 (22.0-30.0) sec Sodium 138 (137-145) mmol/L Potassium 4.5 (3.5-5.1) mmol/L Chloride 107 (98-107) mmol/L Carbon Dioxide 23 (22-30) mmol/L Anion Gap 8 mmol/L BUN 12 (7-17) mg/dL Creatinine 0.65 (0.52-1.04) mg/dL Est GFR (CKD-EPI)AfAm >90 (>60 ml/min/1.73 sqM) Est GFR (CKD-EPI)NonAf >90 (>60 ml/min/1.73 sqM) Glucose 89 (74-99) mg/dL Calcium 9.0 (8.4-10.2) mg/dL Total Bilirubin 0.7 (0.2-1.3) mg/dL AST 31 (14-36) U/L ALT 16 (4-34) U/L Alkaline Phosphatase 115 (38-126) U/L Total Protein 7.2 (6.3-8.2) g/dL Albumin 3.8 (3.5-5.0) g/dL Urine Color Urine Appearance (Clear) Urine pH (5.0-8.0) Ur Specific [place] (1.001-1.035) Urine Protein (Negative) Urine Glucose (UA) (Negative) Urine Ketones (Negative) Urine Blood (Negative) Urine Nitrite (Negative) Urine Bilirubin (Negative) Urine Urobilinogen (<2.0) mg/dL Ur Leukocyte Esterase (Negative) Urine RBC (0-5) /hpf Urine WBC (0-5) /hpf Ur Squamous Epith Cells (0-4) /hpf Urine Mucus (None) /hpf Urine HCG, Qual (Not Detectd) Blood Type Blood Type Recheck Bld Type Recheck Status Antibody Screen Spec Expiration Date 09/27/21 09/27/21 09/27/21 Range/Units 11:35 11:35 11:35 WBC (3.8-10.6) k/uL RBC (3.80-5.40) m/uL Hgb (11.4-16.0) gm/dL Hct (34.0-46.0) % MCV (80.0-100.0) fL MCH (25.0-35.0) pg MCHC (31.0-37.0) g/dL RDW (11.5-15.5) % Plt Count (150-450) k/uL MPV Neutrophils % % Lymphocytes % % Monocytes % % Eosinophils % % Basophils % % Neutrophils # (1.3-7.7) k/uL Lymphocytes # (1.0-4.8) k/uL Monocytes # (0-1.0) k/uL Eosinophils # (0-0.7) k/uL Basophils # (0-0.2) k/uL PT (9.0-12.0) sec INR (<1.2) APTT (22.0-30.0) sec Sodium (137-145) mmol/L Potassium (3.5-5.1) mmol/L Chloride (98-107) mmol/L Carbon Dioxide (22-30) mmol/L Anion Gap mmol/L BUN (7-17) mg/dL Creatinine (0.52-1.04) mg/dL Est GFR (CKD-EPI)AfAm (>60 ml/min/1.73 sqM) Est GFR (CKD-EPI)NonAf (>60 ml/min/1.73 sqM) Glucose (74-99) mg/dL Calcium (8.4-10.2) mg/dL Total Bilirubin (0.2-1.3) mg/dL AST (14-36) U/L ALT (4-34) U/L Alkaline Phosphatase (38-126) U/L Total Protein (6.3-8.2) g/dL Albumin (3.5-5.0) g/dL Urine Color Yellow Urine Appearance Clear (Clear) Urine pH 7.0 (5.0-8.0) Ur Specific [place] 1.019 (1.001-1.035) Urine Protein Negative (Negative) Urine Glucose (UA) Negative (Negative) Urine Ketones Negative (Negative) Urine Blood Large H (Negative) Urine Nitrite Negative (Negative) Urine Bilirubin Negative (Negative) Urine Urobilinogen <2.0 (<2.0) mg/dL Ur Leukocyte Esterase Trace H (Negative) Urine RBC >182 H (0-5) /hpf Urine WBC 2 (0-5) /hpf Ur Squamous Epith Cells 2 (0-4) /hpf Urine Mucus Rare H (None) /hpf Urine HCG, Qual Not Detected (Not Detectd) Blood Type O Positive Blood Type Recheck No Previous Record Bld Type Recheck Status CABO Indicated Antibody Screen NEGATIVE Spec Expiration Date 09/30/20212334 Disposition Clinical Impression: Dysfunctional uterine bleeding Disposition: HOME SELF-CARE Condition: Good Instructions (If sedation given, give patient instructions): Abnormal (Dysfunctional) Uterine Bleeding (ED) Additional Instructions: Please follow up with your WINDOWS APPLICATION ADMINISTRATOR in 1-2 days. Return to the emergency department if you experience new, concerning, or worsening symptoms. Is patient prescribed a controlled substance at d/c from ED?: No Referrals: Hi Chavez MD [Primary Care Provider] - 1-2 days Time of Disposition: 13:45
[2021-09-27 13:54] VITALS: BP 118/68; PULSE 88; RESP 18; TEMP 98.6
== END 2021-09-27 13:53 | disposition home or self-care (01) ==
LOC: EC 10:35
DX: N93.8 Other specified abnormal uterine and vaginal bleeding (principal); F32.A Depression, unspecified; F41.9 Anxiety disorder, unspecified; Z79.899 Other long term (current) drug therapy
CPT/HCPCS: 36415; 76830; 80053; 81001; 81025; 85025; 85610; 85730; 86850; 86900; 86901; 93976; 99284

== ENCOUNTER 2021-10-08 17:46 | Emergency (ER) | payer OTHER ==
[2021-10-08] MEDS ORDERED: ONDANSETRON ODT 4 MG TAB PO STA (19:13)
[2021-10-08] MEDS ORDERED: ACETAMINOPHEN TAB 500 MG TAB PO STA (19:13)
[2021-10-08 19:20] VITALS: PULSE 60; RESP 18; TEMP 99.1
--- NOTE | 2021-10-08 19:20 | ED ---
General Adult HPI - General Chief complaint: Nausea/Vomiting/Diarrhea Stated complaint: Vomiting Time Seen by Provider: 10/08/21 19:05 Source: patient, RN notes reviewed, old records reviewed Mode of arrival: ambulatory Limitations: no limitations - History of Present Illness Initial comments: This is a well-appearing 21-year-old female that presents to the emergency room with complaints of nausea vomiting and diarrhea that started this morning. Patient states that she also has a mild headache. She denies any sick contacts. She denies any fevers. She denies any abdominal pain. She denies any medical history, no surgical history. She is a nonsmoker. -: days(s) (1) Associated Symptoms: nausea/vomiting - Related Data Home Medications Medication Instructions Recorded Confirmed Cholecalciferol [Vitamin D3 (25 25 mcg PO DAILY 10/08/21 10/08/21 Mcg = 1000 Iu)] Desvenlafaxine [Pristiq ER] 100 mg PO DAILY 10/08/21 10/08/21 Linaclotide [Linzess] 72 mcg PO DAILY PRN 10/08/21 10/08/21 Allergies Allergy/AdvReac Type Severity Reaction Status Date / Time bupropion [From Wellbutrin] AdvReac Rapid Verified 10/08/21 20:51 Heart Rate Milk Containing Products AdvReac Nausea Verified 10/08/21 20:51 [Dairy] Review of Systems ROS Statement: Those systems with pertinent positive or pertinent negative responses have been documented in the HPI. ROS Other: All systems not noted in ROS Statement are negative. Past Medical History Past Medical History: No Reported History History of Any Multi-Drug Resistant Organisms: None Reported Past Surgical History: Ear Surgery Additional Past Surgical History / Comment(s): ear tubes. wisdom Past Psychological History: Anxiety, Depression Smoking Status: Never smoker Past Alcohol Use History: Occasional Past Drug Use History: None Reported General Exam Limitations: no limitations General appearance: alert, in no apparent distress Head exam: Present: atraumatic Eye exam: Present: normal appearance. Absent: scleral icterus, conjunctival injection ENT exam: Present: normal exam, normal oropharynx, mucous membranes moist Neck exam: Present: normal inspection, full ROM. Absent: meningismus Respiratory exam: Present: normal lung sounds bilaterally. Absent: respiratory distress, accessory muscle use Cardiovascular Exam: Present: regular rate GI/Abdominal exam: Present: soft, normal bowel sounds. Absent: distended, tenderness, guarding, rebound, rigid Back exam: Present: normal inspection. Absent: tenderness, CVA tenderness (R), CVA tenderness (L) Neurological exam: Present: alert, oriented X3, normal gait Psychiatric exam: Present: normal affect, normal mood Skin exam: Present: warm, dry, intact, normal color. Absent: cyanosis, diaphoretic Course Vital Signs 10/08/21 10/08/21 18:12 19:49 Temperature 99.1 F Pulse Rate 60 Respiratory 18 Rate Blood Pressure 126/76 O2 Sat by Pulse 96 Oximetry Medical Decision Making - Medical Decision Making Coronavirus and influenza swab is negative. Urine test is negative. She is feeling better after the Zofran. She continues to deny any abdominal pain. Abdomen soft and nontender. This is likely a viral illness. She was encouraged to increase her fluid intake and follow-up with her primary care doctor next week. She was directed to return to the emergency room if any new or concerning symptoms including fever and right lower quadrant abdominal pain or persistent nausea and vomiting. She is agreeable to this plan of care. Case discussed with Dr. Cates - Lab Data Lab Results 10/08/21 10/08/21 10/08/21 Range/Units 19:37 19:37 19:37 Urine Color Urine Appearance (Clear) Urine pH (5.0-8.0) Ur Specific [place] (1.001-1.035) Urine Protein (Negative) Urine Glucose (UA) (Negative) Urine Ketones (Negative) Urine Blood (Negative) Urine Nitrite (Negative) Urine Bilirubin (Negative) Urine Urobilinogen (<2.0) mg/dL Ur Leukocyte Esterase (Negative) Urine RBC (0-5) /hpf Urine WBC (0-5) /hpf Ur Squamous Epith Cells (0-4) /hpf Hyaline Casts (0-2) /lpf Urine Mucus (None) /hpf Urine HCG, Qual Not Detected (Not Detectd) Coronavirus (PCR) Not Detected (Not Detectd) Influenza Type A RNA Not Detected (Not Detectd) Influenza Type B (PCR) Not Detected (Not Detectd) 10/08/21 Range/Units 19:37 Urine Color Yellow Urine Appearance Cloudy H (Clear) Urine pH 5.5 (5.0-8.0) Ur Specific [place] 1.031 (1.001-1.035) Urine Protein Trace H (Negative) Urine Glucose (UA) Negative (Negative) Urine Ketones Negative (Negative) Urine Blood Negative (Negative) Urine Nitrite Negative (Negative) Urine Bilirubin Negative (Negative) Urine Urobilinogen <2.0 (<2.0) mg/dL Ur Leukocyte Esterase Large H (Negative) Urine RBC 2 (0-5) /hpf Urine WBC 7 H (0-5) /hpf Ur Squamous Epith Cells 6 H (0-4) /hpf Hyaline Casts 1 (0-2) /lpf Urine Mucus Many H (None) /hpf Urine HCG, Qual (Not Detectd) Coronavirus (PCR) (Not Detectd) Influenza Type A RNA (Not Detectd) Influenza Type B (PCR) (Not Detectd) Disposition Clinical Impression: Nausea & vomiting Disposition: HOME SELF-CARE Condition: Good Instructions (If sedation given, give patient instructions): Acute Nausea and Vomiting (ED) Additional Instructions: Increase your fluid intake and follow-up with the primary care doctor next week. Return to the emergency room with any new or concerning symptoms including right lower quadrant pain, persistent nausea vomiting or fevers. Is patient prescribed a controlled substance at d/c from ED?: No Referrals: Hi Chavez MD [Primary Care Provider] - 1-2 days Time of Disposition: 20:51
[2021-10-08 19:49] VITALS: BP 126/76
[2021-10-08 20:01] LABS: Appearance,Urine Cloudy (Clear); Bilirubin,Urine Negative (Negative); Blood,Urine Negative (Negative); Color,Urine Yellow; Glucose,Urine (UA) Negative (Negative); Hyaline Casts,Urine 1 /lpf (0-2); Ketones,Urine Negative (Negative); Leukocyte Esterase,Urine Large (Negative); Mucus,Urine Many /hpf; Nitrite,Urine Negative (Negative); PH, Urine 5.5 (5.0-8.0); Protein,Urine Trace (Negative); RBC,Urine 2 /hpf (0-5); Specific Gravity,Urine 1.031 (1.001-1.035); Squamous Epithelial Cell,Urine 6 /hpf (0-4); Urobilinogen,Urine <2.0 mg/dL (<2.0); WBC,Urine 7 /hpf (0-5)
== END 2021-10-08 20:59 | disposition home or self-care (01) ==
LOC: EC 17:46
DX: R11.2 Nausea with vomiting, unspecified (principal); Z20.822 Contact with and (suspected) exposure to COVID-19; Z91.011 Allergy to milk products; Z88.5 Allergy status to narcotic agent
CPT/HCPCS: 81001; 81025; 87502; 87635

== ENCOUNTER → 2022-06-05 | Outpatient (CLI) | payer OTHER ==
--- NOTE | 2022-06-17 11:23 | P.CEMON ---
Event monitor shows sinus rhythm and sinus tachycardia at 153 beats a minute No arrhythmias
--- NOTE | 2022-06-18 10:12 | EM ---
Event monitor shows sinus rhythm and sinus tachycardia at 153 beats a minute No arrhythmias MTDD
== END | disposition home or self-care (01) ==
LOC: RADECHMAIN 07:43
PROVIDERS: ATTEND Family Medicine
DX: R00.0 Tachycardia, unspecified (principal)
CPT/HCPCS: 93270

== ENCOUNTER 2023-03-25 07:35 | Emergency (ER) | payer MEDICAID, OTHER ==
[2023-03-25 07:45] VITALS: RESP 18; TEMP 98.3
--- NOTE | 2023-03-25 07:57 | ED ---
Chest Pain HPI - General Stated Complaint: Chest pains/ Allergic reaction Source: patient Mode of arrival: ambulatory Limitations: no limitations - History of Present Illness Initial Comments: The patient is a 22-year-old female with a history of aortic valve regurgitation but is otherwise healthy presents emergency room with complaints of pleuritic chest pain that started an hour and half ago. 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 Patient states the pain is worse with breathing and radiates down the left arm. Patient denies any shortness breath. She denies any hemoptysis, pain or swelling to the extremities, history of DVT or PE, recent cough congestion or upper respiratory symptoms. Patient was diagnosed within the last week with the aortic regurgitation that was seen on an echo. Patient's metoprolol daily. Patient is a nonsmoker denies any drugs. She is not on any OCPs. - Related Data Home Medications Medication Instructions Recorded Confirmed Cholecalciferol [Vitamin D3 (25 25 mcg PO DAILY 10/08/21 10/08/21 Mcg = 1000 Iu)] Desvenlafaxine [Pristiq ER] 100 mg PO DAILY 10/08/21 10/08/21 Linaclotide [Linzess] 72 mcg PO DAILY PRN 10/08/21 10/08/21 Allergies Allergy/AdvReac Type Severity Reaction Status Date / Time bupropion [From Wellbutrin] AdvReac Rapid Verified 03/25/23 07:43 Heart Rate Milk Containing Products AdvReac Nausea Verified 03/25/23 07:43 (Dairy) [Dairy] Review of Systems ROS Statement: Those systems with pertinent positive or pertinent negative responses have been documented in the HPI. ROS Other: All systems not noted in ROS Statement are negative. Past Medical History Past Medical History: No Reported History History of Any Multi-Drug Resistant Organisms: None Reported Past Surgical History: Ear Surgery Additional Past Surgical History / Comment(s): ear tubes. wisdom Past Psychological History: Anxiety, Depression Smoking Status: Never smoker Past Alcohol Use History: Occasional Past Drug Use History: None Reported General Exam Limitations: no limitations General appearance: alert, in no apparent distress Head exam: Present: atraumatic Eye exam: Present: normal appearance ENT exam: Present: normal exam Neck exam: Present: normal inspection Respiratory exam: Present: normal lung sounds bilaterally Cardiovascular Exam: Present: normal rhythm, tachycardia GI/Abdominal exam: Present: soft Extremities exam: Present: full ROM Neurological exam: Present: alert, oriented X3, CN II-XII intact Psychiatric exam: Present: normal affect, normal mood Skin exam: Present: warm, dry Course Vital Signs 03/25/23 03/25/23 03/25/23 07:40 07:46 08:22 Temperature 98.3 F Pulse Rate 124 H 93 Pulse Rate [ 101 H Toby Maker ] Respiratory 18 18 Rate Blood Pressure 124/78 106/81 O2 Sat by Pulse 98 100 Oximetry 03/25/23 03/25/23 08:43 09:01 Temperature Pulse Rate 98 96 Pulse Rate [ Toby Maker ] Respiratory 18 18 Rate Blood Pressure 106/62 121/76 O2 Sat by Pulse 100 99 Oximetry - Reevaluation(s) Reevaluation #1: 03/25/23 09:39 pn BU evaluation patient is well-appearing emergency room. She is in no distress. Vital signs of improved her heart rate is down to 76. She did get fluids and Toradol emergency room. Discussed the lab and imaging results with patient. He patient d-dimer is within normal limits therefore no CT angios was ordered. Her troponin is negative and EKG shows no acute ST segment elevation or acute changes. Patient has a moderately hemolyzed potassium which is slightly elevated rate of 5.6. I recommended the patient have this re-checked as an outpatient by the manager change her PCP. Discussed following up with the manager change for continued intermittent pain. The patient understands to treatment discharge plan. She understands signs to return to the Ed. i discussed patients symptoms, workup and disposition with attending Ed physician Dr Rizvi today. Chest Pain MDM - MDM Was pt. sent in by a medical professional or institution (, PA, BAND LINING BANDER, urgent care, hospital, or fpc...) When possible be specific @ -[No] Did you speak to anyone other than the patient for history (EMS, parent, family, police, friend...)? What history was obtained from this source @ -[No] Did you review nursing and triage notes (agree or disagree)? Why? @ -[I reviewed and agree with nursing and triage notes] Were old charts reviewed (outside hosp., previous admission, EMS record, old EKG, old radiological studies, urgent care reports/EKG's, fpc records)? Report findings @ -Yes old charts reviewed including increasing cardiology tests, outpatient imaging studies and previous ER physician. Differential Diagnosis (chest pain, altered mental status, abdominal pain women, abdominal pain men, vaginal bleeding, weakness, fever, dyspnea, syncope, headache, dizziness, GI bleed, back pain, seizure, CVA, palpatations, mental health, musculoskeletal)? @ -Angina, chest pain, PE, anxiety, pleurisy, costochondritis EKG interpreted by me (3pts min.). @ -EKG shows normal sinus rhythm at a rate of [address] segment elevation, normal QT intervals at 403 ms. X-rays interpreted by me (1pt min.). @ -Chest x-ray is negative for any acute changes. It is negative for any pneumothorax or pneumonia or other acute changes. Radiology report pending for confirmation of these acute changes. CT interpreted by me (1pt min.). @ -[None done] U/S interpreted by me (1pt. min.). @ -[None done] What testing was considered but not performed or refused? (CT, X-rays, U/S, labs)? Why? @ -CT angiogram however patient's d-dimer is within normal limits and her heart rate improved in the emergency room. What meds were considered but not given or refused? Why? @ -[None] Did you discuss the management of the patient with other professionals (professionals i.e. , PA, BAND LINING BANDER, lab, RT, psych nurse, geriatric social worker, instructor extension work, teacher, chief commercial officer, case supervisor)? Give summary @ -Discussed patient's symptoms are And disposition with attending ED physician Dr. Rizvi today. Was smoking cessation discussed for >3mins.? @ -[No] Was critical care preformed (if so, how long)? @ -[No] Were there social determinants of health that impacted care today? How? (Homelessness, low income, unemployed, alcoholism, drug addiction, transpor tation, low edu. Level, literacy, decrease access to med. care, [facility], rehab)? @ -[No] Was there de-escalation of care discussed even if they declined (Discuss DNR or withdrawal of care, Hospice)? DNR status @ -[No] What co-morbidities impacted this encounter? (DM, HTN, Smoking, COPD, CAD, Cancer, CVA, ARF, Chemo, Hep., AIDS, mental health diagnosis, sleep apnea, morbid obesity)? @ -Patient has a history of newly diagnosed aortic regurgitation. Patient takes metoprolol at home Was patient admitted / discharged? Hospital course, mention meds given and route, prescriptions, significant lab abnormalities, going to OR and other pertinent info. @ -Patient is well-appearing in the emergency room. Her labs and imaging studies are within normal limits. The patient is stable to follow up as an outpatient with her established manager change. She does understand signs return to the emergency room. At this time there is no indication hospitalization is required. We did recommend that the patient have her blood work rechecked in potassium rechecked due to the hemolyzed lab today. Undiagnosed new problem with uncertain prognosis? @ -[No] Drug Therapy requiring intensive monitoring for toxicity (Heparin, Nitro, Insulin, Cardizem)? @ -[No] Were any procedures done? @ -[No] Diagnosis/symptom? @ -Pleuritic chest pain, pleurisy versus anxiety Acute, or Chronic, or Acute on Chronic? @ -Acute Uncomplicated (without systemic symptoms) or Complicated (systemic symptoms)? @ -Uncomplicated Side effects of treatment? @ -[No] Exacerbation, Progression, or Severe Exacerbation? @ -[No] Poses a threat to life or bodily function? How? (Chest pain, [place], [place], pneumonia, PE, COPD, DKA, ARF, appy, cholecystitis, CVA, Diverticulitis, Homicidal, Vicki cidal, threat to staff... and all critical care pts) @ -[No] Disposition Clinical Impression: Non-cardiac chest pain, Pleuritic chest pain Disposition: HOME SELF-CARE Condition: Good Additional Instructions: Follow up with your manager change. Follow up with PCP or manager change for repeat potassium levels as an outpatient. Return for worsening or new concerning symptoms. Is patient prescribed a controlled substance at d/c from ED?: No Referrals: Hi Chavez MD [Primary Care Provider] - 1-2 days Time of Disposition: 09:45
[2023-03-25 08:11] LABS: Basophils % (A) 0 %; Eosinophils # (A) 0.2 k/uL (0-0.7); Eosinophils % (A) 1 %; HCT 42.3 % (34.0-46.0); HGB 14.7 gm/dL (11.4-16.0); Lymphocytes # (A) 2.1 k/uL (1.0-4.8); Lymphocytes % (A) 19 %; MCH 29.8 pg (25.0-35.0); MCHC 34.6 g/dL (31.0-37.0); MCV 86.1 fL (80.0-100.0); Mean Platelet Volume 8.8; Monocytes # (A) 0.7 k/uL (0-1.0); Monocytes % (A) 6 %; Neutrophils % (A) 72 %; Platelet Count 306 k/uL (150-450); RBC 4.91 m/uL (3.80-5.40); RDW 13.9 % (11.5-15.5); WBC 11.1 k/uL (3.8-10.6)
[2023-03-25 08:26] LABS: ALT 23 U/L (4-34); African American GFR (CKD) >90 (>60 ml/min/1.73 sqM); Albumin 4.6 g/dL (3.5-5.0); Anion Gap 13 mmol/L; Blood Urea Nitrogen 12 mg/dL (7-17); Calcium 9.6 mg/dL (8.4-10.2); Carbon Dioxide 18 mmol/L (22-30); Chloride 107 mmol/L (98-107); Glucose 91 mg/dL (74-99); Non-African American GFR(CKD) >90 (>60 ml/min/1.73 sqM); Sodium 138 mmol/L (137-145); Total Bilirubin 1.1 mg/dL (0.2-1.3); Total Protein 8.2 g/dL (6.3-8.2)
[2023-03-25] MEDS ORDERED: KETOROLAC 15 MG/ML 1 ML VIAL IVP STA (08:28)
[2023-03-25] MEDS ORDERED: SODIUM CHLORIDE 0.9% 1,000 ML IV STA (08:28)
[2023-03-25 08:42] LABS: HCG,Quantitative Serum <2.4 mIU/mL
--- NOTE | 2023-03-25 09:09 | XR ---
EXAMINATION TYPE: XR chest 2V DATE OF EXAM: 03/25/2023 8:56 AM COMPARISON: Chest radiographs from 12/20/2019 TECHNIQUE: XR chest 2V Frontal and lateral views of the chest. CLINICAL INDICATION:Female, 22 years old with history of pleuritic chest pain; FINDINGS: Lungs/Pleura: There is no evidence of pleural effusion, focal consolidation, or pneumothorax. Pulmonary vascularity: Unremarkable. Heart/mediastinum: Cardiomediastinal silhouette is prominent in size. Musculoskeletal: No acute osseous pathology. IMPRESSION: No acute cardiopulmonary disease/process.
[2023-03-25 09:13] LABS: Potassium 5.6 mmol/L (3.5-5.1)
[2023-03-25 09:14] LABS: AST 54 U/L (14-36); Alkaline Phosphatase 123 U/L (38-126)
[2023-03-25 09:27] VITALS: BP 121/76; PULSE 96
== END 2023-03-25 09:50 | disposition home or self-care (01) ==
LOC: EC 07:35
DX: R07.89 Other chest pain (principal); F41.9 Anxiety disorder, unspecified; F32.A Depression, unspecified; Z91.011 Allergy to milk products; Z88.8 Allergy status to other drugs, medicaments and biological substances; Z79.899 Other long term (current) drug therapy
CPT/HCPCS: 36415; 93005; 85379; 80053; 84484; 85025; 84702; 71046; 99285; 96374; 96361; J1885

== ENCOUNTER 2024-11-13 10:37 | Emergency (ER) | payer MEDICAID ==
[2024-11-13] MEDS: LIDOCAINE 4% PATCH TOPICAL ONE (11:13)
[2024-11-13] MEDS: KETOROLAC 15 MG/ML 1 ML VIAL IVP STA (11:14)
[2024-11-13] MEDS: DEXAMETHASONE SOD PHOSPHATE 10 MG/ML 1 ML VIAL IVP STA (11:15)
--- NOTE | 2024-11-13 11:18 | ED ---
Back Pain HPI - General Chief Complaint: Extremity Problem,Nontraumatic Stated Complaint: Left leg numbness Time Seen by Provider: 11/13/24 10:43 Source: patient, RN notes reviewed Limitations: no limitations - History of Present Illness Initial Comments: This is a 24-year-old female who presents to the emergency department for back pain. States that over the last few days she has had pain in the lower back that has started to radiate down her left leg. States that it radiates around the left leg and into her toes causing some paresthesias as well. Denies any injuries or history of similar problems in the past. She has not had any relief with [id number] medication. Denies any loss of bowel/bladder control or saddle anesthesia. MD Complaint: back pain - Related Data Home Medications Medication Instructions Recorded Confirmed Cholecalciferol [Vitamin D3 (25 25 mcg PO DAILY 10/08/21 10/08/21 Mcg = 1000 Iu)] Desvenlafaxine [Pristiq ER] 100 mg PO DAILY 10/08/21 10/08/21 Linaclotide [Linzess] 72 mcg PO DAILY PRN 10/08/21 10/08/21 Previous Rx's Medication Instructions Recorded Cyclobenzaprine [Flexeril] 5 - 10 mg PO TID PRN #30 tablet 11/13/24 Lidocaine 5% Patch [Lidoderm 5% 1 patch TOPICAL DAILY PRN #30 patch 11/13/24 Patch] predniSONE 50 mg PO DAILY 5 Days #5 tab 11/13/24 Allergies Allergy/AdvReac Type Severity Reaction Status Date / Time bupropion [From Wellbutrin] AdvReac Rapid Verified 11/13/24 10:42 Heart Rate Milk Containing Products AdvReac Nausea Verified 11/13/24 10:42 (Dairy) [Dairy] Review of Systems ROS Statement: Those systems with pertinent positive or pertinent negative responses have been documented in the HPI. ROS Other: All systems not noted in ROS Statement are negative. Past Medical History Past Medical History: No Reported History History of Any Multi-Drug Resistant Organisms: None Reported Past Surgical History: Ear Surgery Additional Past Surgical History / Comment(s): ear tubes. wisdom Past Psychological History: Anxiety, Depression Smoking Status: Never smoker Past Alcohol Use History: Occasional Past Drug Use History: None Reported General Exam Limitations: no limitations General appearance: alert, in no apparent distress Head exam: Present: atraumatic, normocephalic, normal inspection Respiratory exam: Present: normal lung sounds bilaterally. Absent: respiratory distress, wheezes, rales, rhonchi, stridor Cardiovascular Exam: Present: regular rate, normal rhythm Back exam: Present: full ROM. Absent: tenderness Neurological exam: Present: alert, oriented X3, CN II-XII intact Psychiatric exam: Present: normal affect, normal mood Skin exam: Present: warm, dry, intact, normal color. Absent: rash Course Vital Signs 11/13/24 11/13/24 10:38 12:28 Temperature 97.6 F 97.9 F Pulse Rate 66 79 Respiratory 16 20 Rate Blood Pressure 109/71 93/79 O2 Sat by Pulse 98 98 Oximetry Medical Decision Making - Medical Decision Making This is a 24-year-old female who presents to the emergency department for back pain. Was pt. sent in by a medical professional or institution? @ -No Did you speak to anyone other than the patient for history? @ -No Did you review nursing and triage notes? @ -Yes, and I agree, it is accurate with regards to the patient's symptoms. Were old charts reviewed? @ -No Differential Diagnosis? @ -Differential Back Pain: Strain, zoster, cauda equina syndrome, epidural abscess, vertebral osteomyelitis, discitis, fracture, subluxation, disc herniation, DJD, spinal stenosis, dissection, AAA, pancreatitis, peptic ulcer disease, pyelonephritis, kidney stone, this is not meant to be an all-inclusive list. EKG interpreted by me (3pts min.)? @ -Not obtained X-rays interpreted by me (1pt min.)? @ -X-ray of the lumbar spine obtained. My interpretation identifies no acute fractures. CT interpreted by me (1pt min.)? @ -Not obtained U/S interpreted by me (1pt. min.)? @ -Not obtained What testing was considered but not performed? (CT, X-rays, U/S, labs)? Why? @ -None What meds were considered but not given? Why? @ -None Did you discuss the management of the patient with other professionals? @ -No Did you reconcile home meds? @ -No Was smoking cessation discussed for >3mins.? @ -No Was critical care preformed (if so, how long)? @ -No Were there social determinants of health that impacted care today? How? (Homelessness, low income, unemployed, alcoholism, drug addiction, transportation, low edu. Level, literacy, decrease access to med. care, assisted, rehab)? @ -No Was there de-escalation of care discussed even if they declined? (Discuss DNR or withdrawal of care, Hospice)? @ -No What co-morbidities impacted this encounter? (DM, HTN, Smoking, COPD, CAD, Cancer, CVA, Hep., AIDS, mental health diagnosis, sleep apnea, morbid obesity)? @ -None Was patient admitted / discharged? @ -Discharged. X-ray of the lumbar spine obtained revealing degenerative changes without other acute process. The location and description of her symptoms is suggestive of sciatica/lumbar radiculopathy. Pain was treated in the emergency department. Prescription for 5 day course of prednisone along with Flexeril and lidocaine patches provided with dosing instructions reviewed. Advised follow-up with orthopedics if symptoms persist. Patient discharged home in stable condition. Case discussed with ED attending Dr. Steve. Return precautions reviewed in depth, the patient is instructed to return to the emergency department with any new, worsening, or concerning symptoms. Patient verbalized understanding. Undiagnosed new problem with uncertain prognosis? @ -None Drug Therapy requiring intensive monitoring for toxicity (Heparin, Nitro, In sulin, Cardizem)? @ -None Were any procedures done? @ -None Diagnosis/symptom? @ -Lumbar radiculopathy/sciatica Acute, or Chronic, or Acute on Chronic? @ -Acute Uncomplicated (without systemic symptoms) or Complicated (systemic symptoms)? @ -Uncomplicated Side effects of treatment? @ -None Exacerbation, Progression, or Severe Exacerbation] @ -Not applicable Poses a threat to life or bodily function? @ -No - Radiology Data Radiology results: report reviewed, image reviewed Disposition Clinical Impression: Left lumbar radiculopathy, Sciatica, left side Disposition: HOME SELF-CARE Instructions (If sedation given, give patient instructions): Sciatica (ED), Lumbar Radiculopathy (ED) Additional Instructions: Return to the emergency department with any new, worsening, or concerning symptoms. Take the prednisone daily for 5 days. Take the Flexeril as 1 to 2 tablets up to 3 times daily, however be aware that it may make you drowsy. You can also apply the lidocaine patches daily. Follow up with your primary care provider in 1-2 days. If your symptoms do not improve, follow-up with orthopedics as listed below. Prescriptions: Cyclobenzaprine [Flexeril] 5 - 10 mg PO TID PRN #30 tablet PRN Reason: Pain Lidocaine 5% Patch [Lidoderm 5% Patch] 1 patch TOPICAL DAILY PRN #30 patch PRN Reason: Pain predniSONE 50 mg PO DAILY 5 Days #5 tab Is patient prescribed a controlled substance at d/c from ED?: No Referrals: Hi Chavez MD [Primary Care Provider] - 1-2 days Radha Funes DO [Doctor of Osteopathic Medicine] - 1-2 days Time of Disposition: 11:50
--- NOTE | 2024-11-13 11:23 | XR ---
EXAMINATION TYPE: XR lumbar spine 2 or 3V DATE OF EXAM: 11/13/2024 11:09 AM COMPARISON: None CLINICAL INDICATION: Female, 24 years old with history of Pain; PHH, pain TECHNIQUE: XR lumbar spine 2 or 3V - Frontal, lateral and coned in L5-S1 lateral views of the spine. FINDINGS: No evidence of any acute osseous pathology. No evidence of loss of vertebral body height i s seen. There is normal alignment of the lumbar vertebral bodies. Scattered disc space narrowing. Sca ttered minimal osteophyte formation throughout the visualized spine. There is facet joint arthropathy throughout the spine. Scattered at least mild neural foraminal stenosis. IMPRESSION: 1. No acute fracture. 2. Minimal multilevel disc degeneration. [facility], , 11/13/2024 11:20 AM
[2024-11-13 12:30] VITALS: BP 93/79; PULSE 79; RESP 20; TEMP 97.9
== END 2024-11-13 12:29 | disposition home or self-care (01) ==
LOC: EC 10:37
DX: M54.16 Radiculopathy, lumbar region (principal); M54.32 Sciatica, left side; Z91.011 Allergy to milk products; Z88.8 Allergy status to other drugs, medicaments and biological substances
CPT/HCPCS: 72100; 99284; 96374; 96375; J1100; J1885